=== PATIENT | female | born 1995 | race Caucasian/White ===

== ENCOUNTER 2018-04-14 17:19 | Emergency (ER) | payer OTHER ==
--- NOTE | 2018-04-14 18:16 | EDPHY ---
H & P Time Seen by Provider: 04/14/18 18:14 HPI/ROS: CHIEF COMPLAINT: The shortness of breath and chest pain HISTORY OF PRESENT ILLNESS: 23-year-old female here with 24 hr of shortness of breath and left-sided chest pain. She reports no injury to the chest. She was at work yesterday when she developed sense of tightness across her chest that had sharp left-sided chest pain yesterday evening. She does report slight increase in pain with deep respiration. She has no history of pulmonary embolism or DVT. She is not taking oral estrogen. She has no recent prolonged travel or surgery. REVIEW OF SYSTEMS: Constitutional: No fever, no chills. Eyes: No discharge. ENT: No sore throat. Cardiovascular: No chest pain, no palpitations. Respiratory: No cough, + shortness of breath. Gastrointestinal: No abdominal pain, no vomiting. Genitourinary: No hematuria. Musculoskeletal: No back pain. Skin: No rashes. Neurological: No headache. Smoking Status: Current every day smoker Physical Exam: General Appearance: Alert and no distress. Eyes: Pupils equal and round no injection. Respiratory: Chest is nontender, lungs are clear to auscultation. Cardiac: regular rate and rhythm. Gastrointestinal: Abdomen is soft and nontender, no masses, bowel sounds normal. Musculoskeletal: Neck is supple and nontender. Extremities have full range of motion and are nontender. Skin: No rashes or lesions. Constitutional: Initial Vital Signs Temperature (C) 36.7 C 04/14/18 17:29 Heart Rate 91 04/14/18 17:29 Respiratory Rate 18 04/14/18 17:29 Blood Pressure 109/66 04/14/18 17:29 O2 Sat (%) 100 04/14/18 17:29 O2 Delivery Mode Room Air Allergies/Adverse Reactions: No Known Allergies Allergy (Unverified 04/14/18 17:32) Home Medications: Medication Instructions Recorded NK [No Known Home Meds] 04/14/18 Medical Decision Making - Diagnostics Imaging Results: Imaging Impressions Chest X-Ray 04/14/18 18:14 Impression: No acute findings in the chest. ED Course/Re-evaluation: 23-year-old female here with 24 hr of shortness of breath and chest tightness. EKG reveals no ischemic changes or arrhythmia or QT long prolongation or other interval changes. There is no evidence of pericarditis either. Given her symptoms this may be pericarditis that does not showing up on her EKG yet. D- dimer is negative for pulmonary embolism. We discussed trying 600 mg Motrin 3 to 4 times a day for the next 3 days if not improving following up with her primary care doctor for further evaluation. No evidence of pneumonia, ACS, a arrhythmia, pericarditis, per cauda, WPW, hypoxia, asthma at this time. - Data Points Laboratory Results: Laboratory Results 04/14/18 18:23 04/14/18 18:23 04/14/18 04/14/18 04/14/18 18:23 18:23 18:23 WBC 7.53 10^3/uL 10^3/uL (3.80-9.50) RBC 5.03 10^6/uL 10^6/uL (4.18-5.33) Hgb 13.4 g/dL g/dL (12.6-16.3) Hct 41.0 % % (38.0-47.0) MCV 81.5 fL fL (81.5-99.8) MCH 26.6 pg L pg (27.9-34.1) MCHC 32.7 g/dL g/dL (32.4-36.7) RDW 14.2 % % (11.5-15.2) Plt Count 317 10^3/uL 10^3/uL (150-400) MPV 9.4 fL fL (8.7-11.7) Neut % (Auto) 55.4 % % (39.3-74.2) Lymph % (Auto) 33.5 % % (15.0-45.0) [place] % (Auto) 9.0 % % (4.5-13.0) Eos % (Auto) 1.3 % % (0.6-7.6) Baso % (Auto) 0.5 % % (0.3-1.7) Nucleat RBC Rel Count 0.0 % % (0.0-0.2) Absolute Neuts (auto) 4.17 10^3/uL 10^3/uL (1.70-6.50) Absolute Lymphs (auto) 2.52 10^3/uL 10^3/uL (1.00-3.00) Absolute Monos (auto) 0.68 10^3/uL 10^3/uL (0.30-0.80) Absolute Eos (auto) 0.10 10^3/uL 10^3/uL (0.03-0.40) Absolute Basos (auto) 0.04 10^3/uL 10^3/uL (0.02-0.10) Absolute Nucleated RBC 0.00 10^3/uL 10^3/uL (0-0.01) Immature Gran % 0.3 % % (0.0-1.1) Immature Gran # 0.02 10^3/uL 10^3/uL (0.00-0.10) D-Dimer < 0.27 ug/mLFEU ug/mLFEU (0.00-0.50) Sodium 139 mEq/L mEq/L (135-145) Potassium 4.1 mEq/L mEq/L (3.3-5.0) Chloride 103 mEq/L mEq/L (97-110) Carbon Dioxide 27 mEq/l mEq/l (22-31) Anion Gap 9 mEq/L mEq/L (8-16) BUN 12 mg/dL mg/dL (7-23) Creatinine 0.6 mg/dL mg/dL (0.6-1.0) Estimated GFR > 60 Glucose 92 mg/dL mg/dL (70-100) Calcium 9.6 mg/dL mg/dL (8.5-10.4) Departure - Departure Disposition: Home, Routine, Self-Care Clinical Impression: Dyspnea Condition: Good Instructions: Shortness of Breath (ED) Additional Instructions: Try taking 600 mg of ibuprofen 3 times a day for the next 5 days. For not improving or feel feel worse in any way please return to the ER for further evaluation. Referrals: NONE *PRIMARY CARE P,. [Primary Care Provider] - As per Instructions
[2018-04-14 18:31] LABS: PLATELET COUNT 317 10^3/uL (150-400)
[2018-04-14 20:07] VITALS: BP 127/64
--- NOTE | 2018-04-16 21:20 | CPEKG ---
Test Reason : OPEN Blood Pressure : / mmHG Vent. Rate : 073 BPM Atrial Rate : 073 BPM P-R Int : 167 ms QRS Dur : 101 ms QT Int : 383 ms P-R-T Axes : 071 080 046 degrees QTc Int : 422 ms Sinus rhythm Probable left atrial enlargement Confirmed by Keshia Carrizales ([id number]) on 04/16/2018 9:20:13 PM Referred By: Confirmed By:Keshia Carrizales
== END 2018-04-14 20:10 | disposition home or self-care (01) ==
DX: R06.00 Dyspnea, unspecified (principal)